=== PATIENT | female | born 1990 | race Caucasian/White ===

== ENCOUNTER 2017-06-21 11:52 | Day surgery (SDC) | payer OTHER ==
[2017-06-21] MEDS ORDERED: FENTAnyl 50 MCG/ML VIAL (14:09)
[2017-06-21] MEDS ORDERED: MIDAZOLAM 1 MG/ML 2 ML INJ ×3 (14:09)
== END 2017-06-21 14:59 | disposition home or self-care (01) ==
LOC: GIL 11:52
DX: R19.4 Change in bowel habit (principal); K21.9 Gastro-esophageal reflux disease without esophagitis; K29.60 Other gastritis without bleeding; K64.8 Other hemorrhoids
CPT/HCPCS: 43239; 84703; 88305